=== PATIENT | male | born 1990 | race Caucasian/White ===

== ENCOUNTER 2021-11-09 20:48 | Emergency (ER) | payer BC, SELFPAY ==
[2021-11-09 21:50] VITALS: BP 112/71; PULSE 70; RESP 16; TEMP 36.9; O2SAT 99; BMI 27.2
--- NOTE | 2021-11-09 21:54 | ED_ITS ---
HPI - Animal Bite General Stated Complaint: dog bite right hand Time Seen by Provider: 11/09/21 21:52 History of Present Illness HPI narrative: Patient is a 31-year-old male trying to break up a fight between his dogs. The dogs are immunized. A dog bit him at the right dorsum surface of thumb. Slightly beyond the point of the metacarpal pharyngeal joint. The attack was provoked. The dog's immunizations up-to-date. Denies any head injury denies any nausea vomiting. Patient is unsure of his own tetanus status. He has no allergies. Related Data Previous Rx's Medication Instructions Recorded amoxicillin 875 mg-potassium 1 tab PO BID 5 Days #10 tab 11/09/21 clavulanate 125 mg tablet Allergies Allergy/AdvReac Type Severity Reaction Status Date / Time No Known Allergies Allergy Verified 11/09/21 21:53 Review of Systems Review of Systems: No fever no chills no chest pain or shortness breath no nausea vomiting Yes all other systems are reviewed and are negative [facility] Past Medical History Attestation statement: The following information was validated with the patient. Physical Exam ED Vital Signs: Appearance: Alert. Oriented X3. No acute distress. Eyes: Pupils equal, round and reactive to light. ENT: Pharynx normal. Neck: Normal inspection. Neck supple. No lymph nodes noted. No crepitus CVS: Normal heart rate and rhythm. Pulses normal. Normal S1 and S2 Respiratory: No respiratory distress. Breath sounds normal. No Wheezing. No rales Abdomen: Soft and nontender. No rigidity. No distention. good BS x4 Skin: Positive laceration to the dorsum of the right hand. Just beyond the 1st metacarpal pharyngeal joint. The laceration was superficial. Flexion at the MCP was intact. Flexion at IP intact. Extension at IP flexion and IP also intact. Capillary refill less than 2 seconds. Sensation intact. Opposition of the thumb intact. Extremities: No lower extremity edema. Neurovascular intact to all extremities. No Lacerations. No Rash Neuro: Oriented X 3. No motor deficit. No sensory deficit. Moving all extermities. No slurred speech MDM - Animal Bite MDM Narrative Medical decision making narrative: The wound was copiously irrigated. Laceration was very superficial. Patient did not want suturing at this time. Will start patient on antibiotics. The full wound was explored to full depth. Put through the entire range of motion. Patient will be started on Augmentin. Tetanus updated. In stable condition. Discharge Plan Discharge Clinical Impression: Laceration of hand Patient Disposition: Home, Self-Care Instructions: Laceration (ED) Prescriptions: New amoxicillin-pot clavulanate 875-125 mg tablet 1 tab PO BID 5 Days Qty: 10 0RF Referrals: Physician,Unknown J [Primary Care Provider] - (Keep the wound clean. Take your antibiotics. Follow-up on an outpatient basis in 2 days for wound check.)
[2021-11-09] MEDS: Diphth,Pertus(ACell),Tet Adult 0.5 ML SYRINGE IM (22:06)
[2021-11-09] MEDS: Amoxicillin/Potassium Clav 875 MG TABLET PO (22:07)
--- NOTE | 2021-11-09 22:41 | PC.NURSE ---
I triaged pt and Gallagher MD evaluated pt in triage office. I cleansed wound sufficiently with saline and peroxide, applied bacitracin and a non stick dressing. tetanus given, PO Augmentin given. pt verbalized an understanding of all Dc orders and he ambulated out of the ED independently and with steady gait.
== END 2021-11-09 22:42 | disposition home or self-care (01) ==
LOC: HO.ED 22:11
PROVIDERS: Emergency Provider Emergency Medicine Emergency Medical Services
DX: S60.571A Other superficial bite of hand of right hand, initial encounter (principal); W54.0XXA Bitten by dog, initial encounter; Y93.9 Activity, unspecified; Y92.009 Unspecified place in unspecified non-institutional (private) residence as the place of occurrence of the external cause; Y99.9 Unspecified external cause status
CPT/HCPCS: 90471; 90715; 99283; 99284